=== PATIENT | female | born 1985 ===

== ENCOUNTER 2021-10-10 16:22 | Emergency (ER) | payer OTHER ==
[2021-10-10] MEDS ORDERED: HYDROcodone/Acetaminophen 5/325 mg Tablet ONE (16:49)
[2021-10-10] MEDS ORDERED: Ibuprofen 200 MG TAB ONE (16:54)
== END 2021-10-10 18:08 | disposition home or self-care (01) ==
LOC: CSHERS 16:22
DX: S16.1XXA Strain of muscle, fascia and tendon at neck level, initial encounter (principal); M25.512 Pain in left shoulder; V42.5XXA Car driver injured in collision with two- or three-wheeled motor vehicle in traffic accident, initial encounter
CPT/HCPCS: 70450; 71045; 72125